=== PATIENT | male | born 1960 | race Caucasian/White ===

== ENCOUNTER 2018-08-26 09:00 | Inpatient (IN) | payer OTHER ==
[2018-08-26] VITALS (26 sets, daily range): BP systolic 150–195; BP diastolic 86–129
[~2018-08-26] VITALS: Ht 180.3 cm; Wt 85.7 kg
[2018-08-26] MEDS ORDERED: SITA1TAB2 PO (09:10)
[2018-08-26] MEDS ORDERED: SODIUM CHLORIDE 0.9% 1,000 ML IV ONE ×2 (09:32→10:12)
[2018-08-26] MEDS ORDERED: ONDANSETRON HCL 4MG/2ML INJ IV ONE (09:45)
[2018-08-26 09:55] LABS: HEMATOCRIT. 59.2 % (42.0-52.0); HEMOGLOBIN. 19.7 g/dL (14.0-18.0); MEAN CORPUSCULAR HEMOGLOBIN 32.9 pg (28.0-32.0); MEAN CORPUSCULAR VOLUME 98.9 fL (80.0-94.0); MEAN PLATELET VOLUME 8.2 fl (7.4-10.4); PLATELET 242 x1000/uL (130-400); RED BLOOD CELL COUNT 5.99 mill/uL (4.7-6.1); RED CELL DISTRIBUTION WIDTH 13.5 % (11.6-14.6)
[2018-08-26 10:01] LABS: CHLORIDE 88 mEq/L (98-107)
[2018-08-26 10:02] LABS: BG BASE EXCESS -21.3 mmol/L (-2.0-2.0); BG CARBOXYHEMOGLOBIN 0.2 % (0.5-1.5); BG DEOXYHEMOGLOBIN 1.5 % (0.0-5.0); BG FRACTION INSPIRED OXYGEN 21; BG HCO3 ACT 5.1 mmol/L (22.0-26.0); BG METHEMOGLOBIN 0.7 % (0.0-1.5); BG OXYGEN SATURATION 98.5 % (92.0-98.5); BG OXYHEMOGLOBIN 97.6 % (94.0-97.0); BG PCO2 15.7 mmHg (35.0-45.0); BG PH 7.127 (7.350-7.450); BG PO2 158.5 mmHg (75.0-100.0); BG SAMPLE SITE LEFT RADIAL; BG TOTAL HEMOGLOBIN 20.4 g/dL (12.0-18.0); BG VENT MODE ROOM AIR
[2018-08-26 10:11] LABS: BETA HYDROXYBUTYRATE 0.2 mMol/L (0.0-0.3)
[2018-08-26] MEDS ORDERED: MORPHINE SULFATE 4 MG/ML CPJ (NOT FOR IM USE) IV ONE ×2 (10:15→11:15)
[2018-08-26] MEDS ORDERED: INSULIN REGULAR (DRIP) 100 UNITS in SODIUM CHLORIDE 0.9% 99 ML IV SCH (10:15)
[2018-08-26 10:33] LABS: PLATELET ESTIMATE NORMAL
[2018-08-26 12:16] LABS: CLARITY URINE CLOUDY (CLEAR); COLOR URINE YELLOW (YELLOW); KETONES URINE NEGATIVE (NEGATIVE); LEUKOCYTE ESTERASE URINE NEGATIVE (NEGATIVE); NITRITE URINE NEGATIVE (NEGATIVE); OCCULT BLOOD URINE 2+ (NEGATIVE); PROTEIN URINE 2+ (NEGATIVE); SPECIFIC GRAVITY URINE 1.023 (1.005-1.030); UROBILINOGEN URINE 0.2 E.U./dL (0.2-1.0)
[2018-08-26] MEDS ORDERED: MORPHINE SULFATE 2 MG/ML CPJ (NOT FOR IM USE) IV PRN (12:45)
[2018-08-26] MEDS ORDERED: IPRATROPIUM/ALBUTEROL 0.5-3(2.5)MG/3ML NEB INH PRN (12:45)
[2018-08-26] MEDS ORDERED: ACETAMINOPHEN 325MG TABLET PO PRN (12:45)
[2018-08-26] MEDS ORDERED: SODIUM CHLORIDE 0.9% 1,000 ML IV SCH (13:15)
[2018-08-26] MEDS: FAMOTIDINE 20MG/2ML VIAL IV SCH (13:23)
[2018-08-26] MEDS: ENOXAPARIN 30MG/0.3ML SYR SUBCUT SCH (13:24)
[2018-08-26 14:13] LABS: *AMPHETAMINES SCREEN URINE NEGATIVE (NEGATIVE); *BARBITURATES SCREEN URINE NEGATIVE (NEGATIVE); *BENZODIAZEPINES SCREEN URINE NEGATIVE (NEGATIVE); METHADONE URINE SCREEN NEGATIVE (NEGATIVE); OPIATES URINE SCREEN PRESUMTIVE POSITIVE (NEGATIVE)
[2018-08-26 14:14] LABS: *COCAINE SCREEN URINE NEGATIVE (NEGATIVE); CANNABINOID URINE SCREEN NEGATIVE (NEGATIVE); PHENCYCLIDINE URINE SCREEN NEGATIVE (NEGATIVE)
[2018-08-26] MEDS: PIPERACILLIN/TAZ 3.375G PREMIX 50 ML IV SCH ×2 (14:56→21:55)
[2018-08-26 15:11] LABS: CREATINE KINASE 104 IU/L (39-308); CREATINE KINASE MB FRACTION 5.7 ng/mL (0.5-3.6)
[2018-08-26] MEDS ORDERED: LORAZEPAM 2MG/ML CPJ IV PRN (15:15)
[2018-08-26] MEDS: HYDROMORPHONE HCL/PF 2MG/ML CPJ IV PRN ×2 (15:28→19:34)
[2018-08-26] MEDS ORDERED: SODIUM BICARBONATE 8.4% 1 MEQ/ML 50ML SYR IV ONE (16:30)
[2018-08-26] MEDS ORDERED: SODIUM BICARBONATE 8.4% 1 MEQ/ML 50ML SYR IV NR ×2 (16:30)
[2018-08-26 18:59] LABS: HEPATITIS B SURFACE ANTIGEN NEGATIVE
[2018-08-26 19:29] LABS: HEPATITIS A AB IGM NEGATIVE (NEGATIVE)
[2018-08-26] MEDS: ONDANSETRON HCL 4MG/2ML INJ IV PRN (19:32)
[2018-08-26] MEDS ORDERED: CLONIDINE 0.1MG TABLET PO PRN (19:45)
[2018-08-26] MEDS: DEXT 5%/0.45% NACL 1000ML 1,000 ML IV SCH (20:29)
[2018-08-26] MEDS ORDERED: CLONIDINE 0.2MG TABLET PO NR (22:00)
[2018-08-26] MEDS ORDERED: INSULIN REGULAR (DRIP) 100 UNITS in SODIUM CHLORIDE 0.9% 99 ML IV PRN (22:30)
[2018-08-26] MEDS ORDERED: DEXTROSE 50% WATER 50ML SYRINGE IV PRN ×2 (22:45)
[2018-08-26 22:49] LABS: CHLORIDE 104 mEq/L (98-107)
[2018-08-26 22:57] LABS: CREATINE KINASE 80 IU/L (39-308)
[2018-08-26] MEDS ORDERED: NITROGLYCERIN 50MG PREMIX 250 ML IV PRN (23:15)
[2018-08-26] MEDS: BLOOD SUGAR DIAGNOSTIC STRIP TEST SCH (23:16)
[2018-08-26] MEDS: INSULIN REGULAR (DRIP) 100 UNITS in SODIUM CHLORIDE 0.9% 100 ML IV SCH (23:32)
[2018-08-27] VITALS (63 sets, daily range): BP systolic 121–169; BP diastolic 80–105
[2018-08-27] MEDS: BLOOD SUGAR DIAGNOSTIC STRIP TEST SCH ×24 (00:20→23:00)
[2018-08-27] MEDS: HYDROMORPHONE HCL/PF 2MG/ML CPJ IV PRN ×4 (01:21→20:03)
[2018-08-27] MEDS: ONDANSETRON HCL 4MG/2ML INJ IV PRN ×3 (05:01→20:16)
[2018-08-27] MEDS: DEXT 5%/0.45% NACL 1000ML 1,000 ML IV SCH ×2 (05:03→12:11)
[2018-08-27 05:04] LABS: HEMATOCRIT. 44.3 % (42.0-52.0); HEMOGLOBIN. 15.8 g/dL (14.0-18.0); MEAN CORPUSCULAR HEMOGLOBIN 33.2 pg (28.0-32.0); MEAN CORPUSCULAR VOLUME 92.9 fL (80.0-94.0); MEAN PLATELET VOLUME 8.2 fl (7.4-10.4); PLATELET 128 x1000/uL (130-400); RED BLOOD CELL COUNT 4.77 mill/uL (4.7-6.1); RED CELL DISTRIBUTION WIDTH 13.6 % (11.6-14.6)
[2018-08-27 05:12] LABS: CHLORIDE 104 mEq/L (98-107)
[2018-08-27 05:20] LABS: HDL CHOLESTEROL 29 mg/dL (40-59); INR 1.1; PARTIAL THROMBOPLASTIN TIME 35.9 sec (23.4-31.0); PROTHROMBIN TIME 11.2 sec (9.6-11.0)
[2018-08-27 05:21] LABS: LDL CHOLESTEROL 45 mg/dL (5-100); T4 FREE 0.97 ng/dL (0.76-1.46)
[2018-08-27] MEDS: PIPERACILLIN/TAZ 3.375G PREMIX 50 ML IV SCH ×3 (06:26→22:29)
[2018-08-27] MEDS: FAMOTIDINE 20MG/2ML VIAL IV SCH (07:59)
[2018-08-27 10:40] LABS: PLATELET ESTIMATE SLIGHTLY DECREASED
[2018-08-27] MEDS: ENOXAPARIN 30MG/0.3ML SYR SUBCUT SCH (12:11)
[2018-08-27] MEDS: SODIUM CHLORIDE 0.45% 1,000 ML IV SCH ×2 (15:11→22:29)
[2018-08-27] MEDS: INSULIN REGULAR (DRIP) 100 UNITS in SODIUM CHLORIDE 0.9% 100 ML IV SCH (18:27)
[2018-08-27] MEDS: HYDRALAZINE 20MG/ML VIAL IV PRN (19:01)
[2018-08-27] MEDS ORDERED: SODIUM CHLORIDE 0.9% 500 ML IV ONE (21:45)
[2018-08-28] VITALS (45 sets, daily range): BP systolic 121–167; BP diastolic 78–101
[2018-08-28] MEDS: BLOOD SUGAR DIAGNOSTIC STRIP TEST SCH ×12 (01:00→20:56)
[2018-08-28] MEDS: HYDROMORPHONE HCL/PF 2MG/ML CPJ IV PRN ×4 (04:10→23:09)
[2018-08-28] MEDS: ONDANSETRON HCL 4MG/2ML INJ IV PRN ×2 (04:10→18:28)
[2018-08-28 06:06] LABS: HEMOGLOBIN 13.3 g/dL (14.0-18.0); MEAN CORPUSCULAR HEMOGLOBIN 32.9 pg (28.0-32.0); PLATELET 101 x1000/uL (130-400); RED BLOOD CELL COUNT 4.04 mill/uL (4.7-6.1); RED CELL DISTRIBUTION WIDTH 13.4 % (11.6-14.6)
[2018-08-28] MEDS: PIPERACILLIN/TAZ 3.375G PREMIX 50 ML IV SCH ×3 (06:40→21:02)
[2018-08-28] MEDS: FAMOTIDINE 20MG/2ML VIAL IV SCH ×2 (08:40→20:46)
[2018-08-28] MEDS: SODIUM CHLORIDE 0.45% 1,000 ML IV SCH ×2 (08:41→17:39)
[2018-08-28] MEDS ORDERED: POTASSIUM CHLORIDE INJ 40 MEQ in DEXT 5% WATER 250 ML IV SCH (09:00)
[2018-08-28] MEDS ORDERED: BLOOD SUGAR DIAGNOSTIC STRIP TEST SCH ×2 (11:00→12:00)
[2018-08-28] MEDS: ENOXAPARIN 30MG/0.3ML SYR SUBCUT SCH (13:11)
[2018-08-28] MEDS: HYDRALAZINE 20MG/ML VIAL IV PRN (14:21)
[2018-08-28] MEDS: INSULIN LISPRO 100 UNITS/ML SUBCUT SCH ×2 (17:39→20:58)
[2018-08-29] VITALS (19 sets, daily range): BP systolic 135–173; BP diastolic 77–94
[2018-08-29] MEDS: SODIUM CHLORIDE 0.45% 1,000 ML IV SCH ×3 (02:00→18:02)
[2018-08-29] MEDS: HYDROMORPHONE HCL/PF 2MG/ML CPJ IV PRN ×4 (04:59→21:20)
[2018-08-29] MEDS: PIPERACILLIN/TAZ 3.375G PREMIX 50 ML IV SCH ×2 (05:07→14:38)
[2018-08-29 05:55] LABS: HEMOGLOBIN 12.3 g/dL (14.0-18.0); MEAN CORPUSCULAR HEMOGLOBIN 32.9 pg (28.0-32.0); MEAN CORPUSCULAR VOLUME 93.8 fL (80.0-94.0); PLATELET 120 x1000/uL (130-400); RED BLOOD CELL COUNT 3.73 mill/uL (4.7-6.1); RED CELL DISTRIBUTION WIDTH 13.3 % (11.6-14.6)
[2018-08-29 06:49] LABS: CHLORIDE 105 mEq/L (98-107)
[2018-08-29] MEDS: BLOOD SUGAR DIAGNOSTIC STRIP TEST SCH ×4 (06:51→20:19)
[2018-08-29] MEDS: INSULIN LISPRO 100 UNITS/ML SUBCUT SCH ×4 (06:51→20:32)
[2018-08-29] MEDS: FAMOTIDINE 20MG/2ML VIAL IV SCH ×2 (08:19→20:28)
[2018-08-29] MEDS ORDERED: POTASSIUM CHLORIDE INJ 40 MEQ in DEXT 5% WATER 250 ML IV SCH (10:00)
[2018-08-29] MEDS: ENOXAPARIN 30MG/0.3ML SYR SUBCUT SCH (12:21)
[2018-08-29] MEDS: HYDRALAZINE 20MG/ML VIAL IV PRN ×2 (12:22→18:12)
[2018-08-29] MEDS ORDERED: LEVOFLOXACIN 500MG PREMIX 100 ML IV SCH (18:30)
[2018-08-29] MEDS: LEVOFLOXACIN 500MG PREMIX 100 ML IV SCH (21:20)
[2018-08-30] VITALS: BP 135/68
[2018-08-30 04:00] VITALS: BP 142/75
[2018-08-30] MEDS: SODIUM CHLORIDE 0.45% 1,000 ML IV SCH ×2 (05:44→18:39)
[2018-08-30] MEDS: BLOOD SUGAR DIAGNOSTIC STRIP TEST SCH ×4 (06:11→20:57)
[2018-08-30 07:58] LABS: CHLORIDE 105 mEq/L (98-107)
[2018-08-30 08:00] VITALS: BP 131/80
[2018-08-30 08:00] LABS: HEMATOCRIT 34.3 % (42.0-52.0); MEAN CORPUSCULAR HEMOGLOBIN 32.9 pg (28.0-32.0); MEAN CORPUSCULAR VOLUME 94.2 fL (80.0-94.0); PLATELET 145 x1000/uL (130-400); RED BLOOD CELL COUNT 3.65 mill/uL (4.7-6.1); RED CELL DISTRIBUTION WIDTH 13.3 % (11.6-14.6)
[2018-08-30] MEDS: FAMOTIDINE 20MG/2ML VIAL IV SCH ×2 (08:15→20:56)
[2018-08-30] MEDS: INSULIN LISPRO 100 UNITS/ML SUBCUT SCH ×4 (08:15→20:57)
[2018-08-30] MEDS: ENOXAPARIN 40MG/0.4ML SYR SUBCUT SCH (08:15)
[2018-08-30] MEDS ORDERED: POTASSIUM CHLORIDE 20MEQ TABLET SR PO NR (09:15)
[2018-08-30 12:00] VITALS: BP 154/77
[2018-08-30] MEDS: HYDRALAZINE 20MG/ML VIAL IV PRN (12:41)
[2018-08-30 16:00] VITALS: BP 138/79
[2018-08-30] MEDS ORDERED: HYDROMORPHONE HCL/PF 2MG/ML CPJ IV PRN (16:30)
[2018-08-30] MEDS ORDERED: LORAZEPAM 2MG/ML CPJ IV PRN (16:30)
[2018-08-30 20:00] VITALS: BP 152/80
[2018-08-30] MEDS: LEVOFLOXACIN 500MG PREMIX 100 ML IV SCH (20:56)
[2018-08-31] VITALS: BP 155/79
[2018-08-31] MEDS: SODIUM CHLORIDE 0.45% 1,000 ML IV SCH ×3 (02:49→22:22)
[2018-08-31] MEDS: ONDANSETRON HCL 4MG/2ML INJ IV PRN (02:57)
[2018-08-31 04:00] VITALS: BP 157/82
[2018-08-31 06:24] LABS: HEMATOCRIT 32.9 % (42.0-52.0); HEMOGLOBIN 11.7 g/dL (14.0-18.0); MEAN CORPUSCULAR HEMOGLOBIN 33.7 pg (28.0-32.0); MEAN CORPUSCULAR VOLUME 94.7 fL (80.0-94.0); PLATELET 167 x1000/uL (130-400); RED BLOOD CELL COUNT 3.48 mill/uL (4.7-6.1); RED CELL DISTRIBUTION WIDTH 13.4 % (11.6-14.6)
[2018-08-31 06:31] LABS: CHLORIDE 104 mEq/L (98-107)
[2018-08-31 08:00] VITALS: BP 139/77
[2018-08-31] MEDS: BLOOD SUGAR DIAGNOSTIC STRIP TEST SCH ×4 (08:09→20:23)
[2018-08-31] MEDS: ENOXAPARIN 40MG/0.4ML SYR SUBCUT SCH (08:36)
[2018-08-31] MEDS: FAMOTIDINE 20MG/2ML VIAL IV SCH ×2 (08:36→20:23)
[2018-08-31] MEDS: INSULIN LISPRO 100 UNITS/ML SUBCUT SCH ×4 (08:38→20:23)
[2018-08-31 12:00] VITALS: BP 138/78
[2018-08-31] MEDS ORDERED: POTASSIUM CHLORIDE INJ 40 MEQ in DEXT 5% WATER 250 ML IV SCH (12:00)
[2018-08-31] MEDS ORDERED: PIPERACILLIN/TAZ 3.375G PREMIX 50 ML IV SCH (14:15)
[2018-08-31 16:00] VITALS: BP 130/68
[2018-08-31] MEDS: LEVOFLOXACIN 500MG PREMIX 100 ML IV SCH (18:17)
[2018-08-31 20:00] VITALS: BP 136/76
[2018-09-01] VITALS: BP 153/84
[2018-09-01 04:00] VITALS: BP 143/77
[2018-09-01] MEDS: SODIUM CHLORIDE 0.45% 1,000 ML IV SCH ×3 (05:27→20:57)
[2018-09-01 06:49] LABS: HEMATOCRIT 34.7 % (42.0-52.0); HEMOGLOBIN 12.2 g/dL (14.0-18.0); MEAN CORPUSCULAR HEMOGLOBIN 33.3 pg (28.0-32.0); PLATELET 198 x1000/uL (130-400); RED BLOOD CELL COUNT 3.66 mill/uL (4.7-6.1); RED CELL DISTRIBUTION WIDTH 13.2 % (11.6-14.6)
[2018-09-01 07:30] LABS: CHLORIDE 105 mEq/L (98-107)
[2018-09-01] MEDS: BLOOD SUGAR DIAGNOSTIC STRIP TEST SCH ×4 (07:49→21:00)
[2018-09-01 08:00] VITALS: BP 134/75
[2018-09-01] MEDS: FAMOTIDINE 20MG/2ML VIAL IV SCH ×2 (08:26→20:56)
[2018-09-01] MEDS: INSULIN LISPRO 100 UNITS/ML SUBCUT SCH ×4 (08:27→21:00)
[2018-09-01] MEDS: ENOXAPARIN 40MG/0.4ML SYR SUBCUT SCH (08:27)
[2018-09-01] MEDS ORDERED: POTASSIUM CHLORIDE INJ 40 MEQ in DEXT 5% WATER 250 ML IV SCH (11:00)
[2018-09-01 12:00] VITALS: BP 128/69
[2018-09-01 16:00] VITALS: BP 139/84
[2018-09-01] MEDS: LEVOFLOXACIN 500MG PREMIX 100 ML IV SCH (18:25)
[2018-09-01 20:00] VITALS: BP 146/82
[2018-09-01] MEDS: LORAZEPAM 2MG/ML CPJ IV PRN (20:56)
[2018-09-02] VITALS: BP 148/86
[2018-09-02] MEDS: SODIUM CHLORIDE 0.45% 1,000 ML IV SCH ×5 (00:41→21:03)
[2018-09-02 04:00] VITALS: BP 142/79
[2018-09-02] MEDS: BLOOD SUGAR DIAGNOSTIC STRIP TEST SCH ×4 (07:27→20:58)
[2018-09-02 07:28] LABS: HEMATOCRIT. 35.3 % (42.0-52.0); HEMOGLOBIN. 12.5 g/dL (14.0-18.0); MEAN CORPUSCULAR HEMOGLOBIN 33.5 pg (28.0-32.0); MEAN CORPUSCULAR VOLUME 94.5 fL (80.0-94.0); MEAN PLATELET VOLUME 7.8 fl (7.4-10.4); PLATELET 244 x1000/uL (130-400); RED BLOOD CELL COUNT 3.74 mill/uL (4.7-6.1); RED CELL DISTRIBUTION WIDTH 13.5 % (11.6-14.6)
[2018-09-02 07:41] LABS: CHLORIDE 107 mEq/L (98-107)
[2018-09-02 07:55] LABS: AMYLASE 62 IU/L (25-115)
[2018-09-02 08:00] VITALS: BP 138/92
[2018-09-02] MEDS: INSULIN LISPRO 100 UNITS/ML SUBCUT SCH ×4 (08:05→21:03)
[2018-09-02] MEDS: FAMOTIDINE 20MG/2ML VIAL IV SCH ×2 (09:29→21:03)
[2018-09-02] MEDS: ENOXAPARIN 40MG/0.4ML SYR SUBCUT SCH (09:29)
[2018-09-02 12:00] VITALS: BP 146/79
[2018-09-02 16:00] VITALS: BP 145/81
[2018-09-02] MEDS: LEVOFLOXACIN 500MG PREMIX 100 ML IV SCH (18:12)
[2018-09-02 20:00] VITALS: BP 154/86
[2018-09-02] MEDS: LORAZEPAM 2MG/ML CPJ IV PRN (21:03)
[2018-09-02 22:54] LABS: PLATELET ESTIMATE NORMAL
[2018-09-03] VITALS (7 sets, daily range): BP systolic 144–156; BP diastolic 68–88
[2018-09-03] MEDS: SODIUM CHLORIDE 0.45% 1,000 ML IV SCH ×5 (02:22→21:49)
[2018-09-03] MEDS: BLOOD SUGAR DIAGNOSTIC STRIP TEST SCH ×4 (06:23→21:34)
[2018-09-03] MEDS: INSULIN LISPRO 100 UNITS/ML SUBCUT SCH ×4 (07:59→21:49)
[2018-09-03] MEDS: FAMOTIDINE 20MG/2ML VIAL IV SCH (09:19)
[2018-09-03] MEDS: ENOXAPARIN 40MG/0.4ML SYR SUBCUT SCH (09:19)
[2018-09-03 13:19] LABS: HEMATOCRIT. 34.7 % (42.0-52.0); MEAN CORPUSCULAR HEMOGLOBIN 33.1 pg (28.0-32.0); MEAN CORPUSCULAR VOLUME 95.4 fL (80.0-94.0); MEAN PLATELET VOLUME 7.5 fl (7.4-10.4); PLATELET 288 x1000/uL (130-400); RED BLOOD CELL COUNT 3.64 mill/uL (4.7-6.1); RED CELL DISTRIBUTION WIDTH 13.5 % (11.6-14.6)
[2018-09-03 13:29] LABS: CHLORIDE 106 mEq/L (98-107)
[2018-09-03 14:06] LABS: PLATELET ESTIMATE NORMAL
[2018-09-03] MEDS ORDERED: POTASSIUM CHLORIDE INJ 40 MEQ in DEXT 5% WATER 250 ML IV NR (16:00)
[2018-09-03] MEDS: LEVOFLOXACIN 500MG PREMIX 100 ML IV SCH (21:48)
[2018-09-03] MEDS: FAMOTIDINE 20MG TABLET PO SCH (21:48)
[2018-09-03] MEDS: LORAZEPAM 2MG/ML CPJ IV PRN (22:41)
[2018-09-04] MEDS: SODIUM CHLORIDE 0.45% 1,000 ML IV SCH ×5 (03:03→22:25)
[2018-09-04 04:00] VITALS: BP 135/81
[2018-09-04 06:58] LABS: BASOPHILS % 0.2 % (0.0-2.0); HEMATOCRIT. 33.1 % (42.0-52.0); HEMOGLOBIN. 11.8 g/dL (14.0-18.0); LYMPHOCYTES % 12.1 % (20.0-50.0); MEAN CORPUSCULAR HEMOGLOBIN 33.8 pg (28.0-32.0); MEAN CORPUSCULAR VOLUME 94.8 fL (80.0-94.0); MEAN PLATELET VOLUME 7.9 fl (7.4-10.4); MONOCYTES % 14.4 % (2.0-8.0); NEUTROPHILS % 72.3 % (40.0-76.0); PLATELET 326 x1000/uL (130-400); RED BLOOD CELL COUNT 3.49 mill/uL (4.7-6.1); RED CELL DISTRIBUTION WIDTH 12.9 % (11.6-14.6)
[2018-09-04 07:17] LABS: CHLORIDE 105 mEq/L (98-107)
[2018-09-04] MEDS: BLOOD SUGAR DIAGNOSTIC STRIP TEST SCH ×4 (07:36→20:58)
[2018-09-04 07:48] VITALS: BP 138/83
[2018-09-04] MEDS: FAMOTIDINE 20MG TABLET PO SCH ×2 (08:22→20:56)
[2018-09-04] MEDS: INSULIN LISPRO 100 UNITS/ML SUBCUT SCH ×4 (08:22→21:00)
[2018-09-04] MEDS: ENOXAPARIN 40MG/0.4ML SYR SUBCUT SCH (08:23)
[2018-09-04] MEDS ORDERED: POTASSIUM CHLORIDE INJ 40 MEQ in DEXT 5% WATER 250 ML IV SCH (10:30)
[2018-09-04 12:00] VITALS: BP 124/79
[2018-09-04 16:00] VITALS: BP 127/75
[2018-09-04 16:43] VITALS: BP 127/75
[2018-09-04] MEDS: LEVOFLOXACIN 500MG PREMIX 100 ML IV SCH (17:35)
[2018-09-04 20:00] VITALS: BP 136/74
[2018-09-04] MEDS: LORAZEPAM 2MG/ML CPJ IV PRN (22:47)
[2018-09-05 00:05] VITALS: BP 121/69
[2018-09-05] MEDS: SODIUM CHLORIDE 0.45% 1,000 ML IV SCH ×5 (03:25→22:34)
[2018-09-05 04:00] VITALS: BP 134/89
[2018-09-05 07:05] LABS: BASOPHILS % 0.6 % (0.0-2.0); HEMATOCRIT. 35.4 % (42.0-52.0); HEMOGLOBIN. 12.5 g/dL (14.0-18.0); LYMPHOCYTES % 19.2 % (20.0-50.0); MEAN CORPUSCULAR HEMOGLOBIN 33.3 pg (28.0-32.0); MEAN CORPUSCULAR VOLUME 94.5 fL (80.0-94.0); MEAN PLATELET VOLUME 7.9 fl (7.4-10.4); MONOCYTES % 11.7 % (2.0-8.0); NEUTROPHILS % 67.5 % (40.0-76.0); PLATELET 398 x1000/uL (130-400); RED BLOOD CELL COUNT 3.74 mill/uL (4.7-6.1); RED CELL DISTRIBUTION WIDTH 13.1 % (11.6-14.6)
[2018-09-05 07:22] LABS: CHLORIDE 105 mEq/L (98-107)
[2018-09-05] MEDS: BLOOD SUGAR DIAGNOSTIC STRIP TEST SCH ×4 (07:40→20:31)
[2018-09-05 08:00] VITALS: BP 132/82
[2018-09-05] MEDS: INSULIN LISPRO 100 UNITS/ML SUBCUT SCH ×4 (08:38→20:37)
[2018-09-05] MEDS: ENOXAPARIN 40MG/0.4ML SYR SUBCUT SCH (08:39)
[2018-09-05] MEDS: FAMOTIDINE 20MG TABLET PO SCH ×2 (08:39→20:28)
[2018-09-05 12:00] VITALS: BP 134/79
[2018-09-05 16:07] VITALS: BP 135/76
[2018-09-05] MEDS: LEVOFLOXACIN 500MG PREMIX 100 ML IV SCH (18:04)
[2018-09-05 20:00] VITALS: BP 134/80
[2018-09-05] MEDS: LORAZEPAM 2MG/ML CPJ IV PRN (22:33)
[2018-09-06 00:05] VITALS: BP 124/71
[2018-09-06] MEDS: SODIUM CHLORIDE 0.45% 1,000 ML IV SCH ×2 (03:38→08:48)
[2018-09-06 03:46] VITALS: BP 141/81
[2018-09-06 06:58] LABS: BASOPHILS % 0.3 % (0.0-2.0); EOSINOPHILS % 1.3 % (0.0-5.0); HEMATOCRIT. 35.4 % (42.0-52.0); HEMOGLOBIN. 12.3 g/dL (14.0-18.0); LYMPHOCYTES % 18.1 % (20.0-50.0); MEAN CORPUSCULAR HEMOGLOBIN 32.7 pg (28.0-32.0); MEAN CORPUSCULAR VOLUME 94.4 fL (80.0-94.0); MEAN PLATELET VOLUME 7.8 fl (7.4-10.4); MONOCYTES % 10.4 % (2.0-8.0); NEUTROPHILS % 69.9 % (40.0-76.0); PLATELET 383 x1000/uL (130-400); RED BLOOD CELL COUNT 3.76 mill/uL (4.7-6.1); RED CELL DISTRIBUTION WIDTH 13.1 % (11.6-14.6)
[2018-09-06 07:20] LABS: CHLORIDE 106 mEq/L (98-107)
[2018-09-06] MEDS: BLOOD SUGAR DIAGNOSTIC STRIP TEST SCH ×2 (07:40→13:18)
[2018-09-06 08:00] VITALS: BP 132/75
[2018-09-06] MEDS: INSULIN LISPRO 100 UNITS/ML SUBCUT SCH ×2 (08:46→13:20)
[2018-09-06] MEDS: FAMOTIDINE 20MG TABLET PO SCH (08:47)
[2018-09-06] MEDS: ENOXAPARIN 40MG/0.4ML SYR SUBCUT SCH (08:52)
[2018-09-06 12:00] VITALS: BP 139/71
[2018-09-06] MEDS ORDERED: POTASSIUM CHLORIDE INJ 40 MEQ in DEXT 5% WATER 250 ML IV NR (12:00)
[2018-09-06 16:00] VITALS: BP 136/68
[2018-09-06 18:01] VITALS: BP 132/65
[2018-09-07] MEDS ORDERED: LEVOFLOXACIN 500MG TABLET PO SCH (11:00)
== END 2018-09-06 18:25 | disposition home or self-care (01) | DRG 871 ==
LOC: ER 09:00 → CVICU 10:21 → EDBEDREQ 10:25 → CANBEDREQ 19:31 → 7WST 08-29 17:25
PROVIDERS: ADMIT Internal Medicine; ATTEND Internal Medicine
DX: A41.51 Sepsis due to Escherichia coli [E. coli] (principal); K85.20 Alcohol induced acute pancreatitis without necrosis or infection; E11.10 Type 2 diabetes mellitus with ketoacidosis without coma; N17.9 Acute kidney failure, unspecified; E87.2 Acidosis; F10.239 Alcohol dependence with withdrawal, unspecified; E86.0 Dehydration; E87.6 Hypokalemia; I10 Essential (primary) hypertension; K57.90 Diverticulosis of intestine, part unspecified, without perforation or abscess without bleeding; N20.0 Calculus of kidney; D69.6 Thrombocytopenia, unspecified; E78.5 Hyperlipidemia, unspecified; F17.210 Nicotine dependence, cigarettes, uncomplicated; K57.30 Diverticulosis of large intestine without perforation or abscess without bleeding; G89.29 Other chronic pain; E11.65 Type 2 diabetes mellitus with hyperglycemia; K76.0 Fatty (change of) liver, not elsewhere classified; N32.89 Other specified disorders of bladder; N40.0 Benign prostatic hyperplasia without lower urinary tract symptoms; Z90.49 Acquired absence of other specified parts of digestive tract; Z91.14 Patient's other noncompliance with medication regimen; Z91.19 Patient's noncompliance with other medical treatment and regimen
CPT/HCPCS: 36415; 36600; 71045; 74176; 76700; 80048; 80061; 80076; 80305; 82010; 82150; 82248; 82375; 82550; 82553; 82805; 82962; 83036; 84145; 84153; 84439; 84443; 84484; 85027; 86705; 86709; 86803; 87077; 87186; 87340; 93005; 93306; 96374; 96375; 97116; 97162; 99291; J0360; J1170; J1650; J1815; J1956; J2060; J2270; J2405; J2543; J3480; J3490; J7030; J7040; J7050; J7060; G0103